=== PATIENT | male | born 1955 | race Caucasian/White ===

== ENCOUNTER 2021-08-17 10:21 | Emergency (ER) | payer OTHER ==
--- NOTE | 2021-08-17 11:20 | RAD REPORT ---
EXAM DESCRIPTION: US - Extremity Nonvascular Limited - 08/17/2021 11:06 am CLINICAL HISTORY: RLE swelling/serous drainage, eval for abscess COMPARISON: No comparisons FINDINGS: Small fluid collection measuring 14 millimeters by 10 millimeters x 4 millimeters at the p atient's amputation stump. The fluid collection is simple in appearance. Fluid is interspersed betwee n the adjacent soft tissues which may reflect a subcutaneous edema. IMPRESSION: Small fluid collection at the patient's stump in the right lower extremity is simple in appearance with abscess considered less likely.
[2021-08-17 11:50] LABS: Absolute Lymphocytes (CBC) 2.2 K/uL (0.7-4.9); Basophils % 1.3 % (0-1.3); Hematocrit 40.8 % (39.6-49.0); Lymphocytes % 25.3 % (15.3-44.8); MPV 7.6 fL (7.6-11.3); RBC Red Blood Cell Count 4.25 M/uL (4.33-5.43)
[2021-08-17 12:21] LABS: BUN Blood Urea Nitrogen 18 mg/dL (7-18); Bicarbonate 27 mmol/L (21-32); Glucose Level 99 mg/dL (74-106); Potassium 3.5 mmol/L (3.5-5.1); Sodium Level 141 mmol/L (136-145)
--- NOTE | 2021-08-17 12:30 | EDPHYS ---
Physician Documentation [facility] Name: Onel López Age: 66 yrs Sex: Male : 1955 Arrival Date: 08/17/2021 Time: 10:25 Bed 2 Private MD: ED Physician Cuauhtemoc Maravilla HPI: 08/17 10:43 This 66 yrs old Male presents to ER via Wheelchair with complaints of rn cellulitis. 10:56 Patient presents to ED for recheck of: cellulitis. rn 10:56 The patient presents with cellulitis of the right leg. Description: erythematous, rn swollen, warm. Onset: The symptoms/episode began/occurred 2 day(s) ago. Possible cause(s): unknown. Associated signs and symptoms: Pertinent positives: drainage, erythema, swelling, Pertinent negatives: fever. Modifying factors: the symptoms are alleviated by nothing, the symptoms are aggravated by pressure. Severity of symptoms: At their worst the symptoms were moderate, in the emergency department the symptoms are unchanged. The patient has experienced similar episodes in the past. The patient has not recently seen a physician. Patient reports is here from out of town, for the last 2 days has noticed blister and swelling to right lower extremity. Status post below the knee amputation 8 years ago, no new prosthesis or injury. Denies trauma. Reports yellow and clear drainage from blister, denies fever.. Historical: - Allergies: 10:38 perfumes; ll1 - PMHx: 10:38 COPD; Hypertensive disorder; ll1 - PSHx: 10:38 R BKA; lung SX x 2; ll1 - Immunization history:: Client reports receiving the Petey \T\ Petey single-dose vaccine. Note plus booster vaccine. - Social history:: Smoking status: Patient reports the use of cigarette tobacco products, smokes one-half pack cigarettes per day. - Family history:: not pertinent. - Hospitalizations: : No recent hospitalization is reported. ROS: 10:56 Constitutional: Negative for fever, chills, and weight loss, Eyes: Negative for injury, rn pain, redness, and discharge, Neck: Negative for injury, pain, and swelling, Cardiovascular: Negative for chest pain, palpitations, and edema, Respiratory: Negative for shortness of breath, cough, wheezing, and pleuritic chest pain, Abdomen/GI: Negative for abdominal pain, nausea, vomiting, diarrhea, and constipation, Back: Negative for injury and pain, MS/Extremity: Positive for swelling and drainage right lower extremity Skin: Positive for mild redness and drainage from right lower extremity Neuro: Negative for headache, weakness, numbness, tingling, and seizure. Exam: 10:56 Constitutional: This is a well developed, well nourished patient who is awake, alert, rn and in no acute distress. Cardiovascular: Regular rate and rhythm. No pulse deficits. Respiratory: Mild tachypnea, speaking full sentences Skin: Warm, mild redness and erythema to right lower extremity distal stump, with blister that is partially unroofed. No purulence. No fluctuance deep to blister MS/ Extremity: Pulses equal, no cyanosis. Neurovascular intact. Full, normal range of motion. Equal circumference. Neuro: Awake and alert, GCS 15 Vital Signs: 10:40 BP 131 / 99; Pulse 73; Resp 18; Temp 97.9; Pulse Ox 98% ; Weight 86.18 kg; Height 5 ft. ll1 7 in. (170.18 cm); Pain 10/10; 12:46 BP 155 / 87; Pulse 69; Resp 18; Pulse Ox 95% on R/A; ll3 10:40 Body Mass Index 29.76 (86.18 kg, 170.18 cm) ll1 MDM: 10:36 Patient medically screened. rn 12:28 Differential diagnosis: abscess, cellulitis. Data reviewed: vital signs, nurses notes, rn medical inpatient services test result(s), radiologic studies, and as a result, I will discharge patient. Counseling: I had a detailed discussion with the patient and/or guardian regarding: the historical points, exam findings, and any diagnostic results supporting the discharge/admit diagnosis, lab results, radiology results, the need for outpatient follow up, to return to the emergency department if symptoms worsen or persist or if there are any questions or concerns that arise at home. Special discussion: I discussed with the patient/guardian in detail that at this point there is no indication for admission to the hospital. It is understood, however, that if the symptoms persist or worsen the patient needs to return immediately for re-evaluation. ED course: Ultrasound shows simple fluid collection that does not appear to be abscess, radiology believes is more subcutaneous edema, which fits more with the serous drainage that patient is experiencing. White blood cell count normal and procalcitonin negative. Had discussion with patient and will try double antibiotics and PCP follow-up. Return precautions given and understood.. 08/17 10:42 Order name: CBC with Diff rn 08/17 10:42 Order name: Basic Metabolic Panel; Complete Time: 12:24 rn 08/17 10:42 Order name: US Extrmty Nonvasular Limited; Complete Time: 11:25 rn 08/17 10:42 Order name: Procalcitonin; Complete Time: 12:24 rn 08/17 10:42 Order name: Blood Culture Adult (2) rn 08/17 10:42 Order name: IV Start; Complete Time: 11:31 rn Administered Medications: 12:46 Drug: Bactrim (trimethoprim-sulfamethoxazole) (160 mg-800 mg (DS) 1 tablet Route: PO; ll3 12:56 Follow up: Response: No adverse reaction ll3 12:46 Drug: KeFLEX (cephalexin) 500 mg Route: PO; ll3 12:56 Follow up: Response: No adverse reaction ll3 Disposition Summary: 08/17/21 12:29 Discharge Ordered Location: Home rn Problem: new rn Symptoms: have improved rn Condition: Stable rn Diagnosis - Cellulitis of right lower limb rn Followup: rn - With: Private Physician - When: As needed - Reason: Recheck today's complaints, Re-evaluation by your physician Discharge Instructions: - Discharge Summary Sheet rn - Cellulitis, Adult rn Forms: - Medication Reconciliation Form rn - Thank You Letter rn - Antibiotic learning support assistant - Prescription Opioid Use rn Prescriptions: - Cephalexin 500 mg Oral Capsule - take 1 capsule by ORAL route every 12 hours for 10 days; 20 capsule; Refills: rn 0, Product Selection Permitted - Bactrim DS 800-160 mg Oral Tablet - take 1 tablet by ORAL route every 12 hours for 10 days; 20 tablet; Refills: 0, rn Product Selection Permitted Signatures: Dispatcher [employer] EDCuauhtemoc Lopez MD MD rn Lewis, Lynsay, RN RN ll1 Yuliet Trejo RN RN ll3 Corrections: (The following items were deleted from the chart) 10:40 10:38 PMHx: Hypertensive disorder; ll1 ll1
--- NOTE | 2021-08-17 12:30 | ER ---
Nurse's Notes [facility] Name: Onel López Age: 66 yrs Sex: Male : 1955 Arrival Date: 08/17/2021 Time: 10:25 Bed 2 Private MD: Diagnosis: Cellulitis of right lower limb Presentation: 08/17 10:40 Chief complaint: Patient states: R stump pain, redness since Sunday getting ll1 progressively worse. No known fever. Coronavirus screen: Vaccine status: Patient reports receiving the 1st dose of the Covid vaccine. Client denies travel out of the [place] in the last 14 days. At this time, the client does not indicate any symptoms associated with coronavirus-19. Ebola Screen: Patient denies travel to an Ebola-affected area in the 21 days before illness onset. Initial Sepsis Screen: Does the patient meet any 2 criteria? No. Patient's initial sepsis screen is negative. Does the patient have a suspected source of infection? Yes: Skin breakdown/wound. Risk Assessment: Do you want to hurt yourself or someone else? Patient reports no desire to harm self or others. Onset of symptoms was August 12, 2021. 10:40 Method Of Arrival: Wheelchair ll1 10:40 Acuity: ANDREW 3 ll1 Triage Assessment: 12:55 General: Behavior is calm, cooperative. Derm: Wound noted right leg. ll3 Historical: - Allergies: 10:38 perfumes; ll1 - PMHx: 10:38 COPD; Hypertensive disorder; ll1 - PSHx: 10:38 R BKA; lung SX x 2; ll1 - Immunization history:: Client reports receiving the Petey \T\ Petey single-dose vaccine. Note plus booster vaccine. - Social history:: Smoking status: Patient reports the use of cigarette tobacco products, smokes one-half pack cigarettes per day. - Family history:: not pertinent. - Hospitalizations: : No recent hospitalization is reported. Screenin:32 Abuse screen: Denies threats or abuse. Nutritional screening: No deficits noted. ll3 Tuberculosis screening: No symptoms or risk factors identified. Fall Risk IV access (20 points). Mental Status- Oriented to own ability (0 pts). Total Saenz Fall Scale indicates No Risk (0-24 pts). Assessment: 11:32 General: Appears in no apparent distress. uncomfortable. Pain: Complains of pain in ll3 right leg Pain currently is 10 out of 10 on a pain scale. Pain began 2-3 days ago. Is continuous. Neuro: Level of Consciousness is awake, alert, obeys commands, Oriented to person, place, time, situation, Speech is normal, Facial symmetry appears normal. Respiratory: Airway is patent Respiratory effort is even, unlabored, Respiratory pattern is regular, symmetrical. Derm: Skin has blisters on Blisters to right stump Skin is pink, warm \T\ dry. Wound noted right leg Reports pain that is 10 out of 10 on a pain scale. since Sunday. Musculoskeletal: Amputation of right leg, below knee. 12:46 Reassessment: Patient appears in no apparent distress at this time. No changes from ll3 previously documented assessment. Patient and/or family updated on plan of care and expected duration. Pain level reassessed. Patient is alert, oriented x 3, equal unlabored respirations, skin warm/dry/pink. Vital Signs: 10:40 BP 131 / 99; Pulse 73; Resp 18; Temp 97.9; Pulse Ox 98% ; Weight 86.18 kg; Height 5 ft. ll1 7 in. (170.18 cm); Pain 10/10; 12:46 BP 155 / 87; Pulse 69; Resp 18; Pulse Ox 95% on R/A; ll3 10:40 Body Mass Index 29.76 (86.18 kg, 170.18 cm) ll1 ED Course: 10:25 Patient arrived in ED. am2 10:36 Cuauhtemoc Maravilla MD is Attending Physician. rn 10:38 Arm band placed on Patient placed in an exam room, on a stretcher. ll1 10:42 Triage completed. ll1 10:56 Yuliet Trejo, GIOVANNY is Primary Nurse. ll3 11:06 US Extrmty Nonvasular Limited In Process Unspecified. EDMS 11:31 Missed attempt(s): 20 gauge in right antecubital area. 22 gauge in right forearm. ll3 11:31 Inserted saline lock: 22 gauge in left forearm, using aseptic technique. ll3 11:31 Initial lab(s) drawn, by me, sent to lab. jl7 11:32 Patient has correct armband on for positive identification. Bed in low position. Call 3 light in reach. Side rails up X 1. 12:54 No provider procedures requiring assistance completed. IV discontinued, intact, ll3 bleeding controlled, No redness/swelling at site. Pressure dressing applied. Administered Medications: 12:46 Drug: Bactrim (trimethoprim-sulfamethoxazole) (160 mg-800 mg (DS) 1 tablet Route: PO; ll3 12:56 Follow up: Response: No adverse reaction ll3 12:46 Drug: KeFLEX (cephalexin) 500 mg Route: PO; ll3 12:56 Follow up: Response: No adverse reaction ll3 Outcome: 12:29 Discharge ordered by . rn 12:55 Discharged to home via wheelchair. ll3 12:55 Condition: stable 12:55 Discharge instructions given to patient, Instructed on discharge instructions, follow up and referral plans. medication usage, Demonstrated understanding of instructions, follow-up care, medications, Prescriptions given X 2. 12:56 Patient left the ED. ll3 Signatures: Dispatcher [employer] EDMS Cuauhtemoc Maravilla MD MD rn Leal, Jahala, RN RN jl7 Tami Chong Lynsay, RN RN ll1 Yuliet Trejo, GIOVANNY RN ll3 Corrections: (The following items were deleted from the chart) 10:40 10:38 PMHx: Hypertensive disorder; ll1 ll1
[2021-08-17] MEDS ORDERED: CEPHALEXIN 250 MG CAP ONE (12:36)
[2021-08-17] MEDS ORDERED: SMZ./TMP. 800/160 MG TABLET ONE (12:37)
[2021-08-17 12:56] LABS: Blood Morphology Comment NOT SEEN (NOT SEEN); Platelet Estimate ADEQ
[2021-08-17 13:04] VITALS: TEMP 97.9
[2021-08-17 13:05] VITALS: BP 155/87; O2SAT 95
== END 2021-08-17 12:56 | disposition home or self-care (01) ==
LOC: ER 10:21
DX: L03.115 Cellulitis of right lower limb (principal); J44.9 Chronic obstructive pulmonary disease, unspecified; I10 Essential (primary) hypertension
CPT/HCPCS: 36415; 76882; 80048; 84145; 85025; 87040; 99284

== ENCOUNTER 2021-08-19 16:04 | Inpatient (IN) | payer OTHER ==
[2021-08-19] MEDS ORDERED: IPRATROPIUM BROM 0.5MG/2.5ML ONE (18:19)
[2021-08-19] MEDS ORDERED: ALBUTEROL 2.5 MG/3 ML NEB SOL ONE (18:19)
[2021-08-19] MEDS ORDERED: MORPHINE 4 MG/ML SYR ONE (18:19)
[2021-08-19 18:45] LABS: Absolute Lymphocytes (CBC) 1.3 K/uL (0.7-4.9); Basophils % 0.5 % (0-1.3); Hematocrit 40.7 % (39.6-49.0); Lymphocytes % 12.8 % (15.3-44.8); MPV 7.6 fL (7.6-11.3); RBC Red Blood Cell Count 4.26 M/uL (4.33-5.43)
[2021-08-19 18:49] LABS: Protime INR 0.88
[2021-08-19 19:08] LABS: BUN Blood Urea Nitrogen 16 mg/dL (7-18); Bicarbonate 28 mmol/L (21-32); Glucose Level 115 mg/dL (74-106); Potassium 4.5 mmol/L (3.5-5.1); Sodium Level 137 mmol/L (136-145)
[2021-08-19 19:09] LABS: ALT/SGPT 35 U/L (12-78); AST/SGOT 24 U/L (15-37); Albumin 3.4 g/dL (3.4-5.0); Alkaline Phosphatase 71 U/L (45-117); Bilirubin Direct < 0.1 mg/dL (0-0.2); Bilirubin Total 0.2 mg/dL (0.2-1.0); Protein, Total 6.9 g/dL (6.4-8.2)
--- NOTE | 2021-08-19 19:19 | ER ---
Nurse's Notes [facility] Name: Onel López Age: 66 yrs Sex: Male : 1955 Arrival Date: 08/19/2021 Time: 16:07 Bed 17 Private MD: Diagnosis: Cellulitis of right lower limb Presentation: 08/19 17:08 Chief complaint: Patient states: I came to have my leg looked at again. I was put on iw antibiotics for the infection and it is getting worse. Reports increased redness, drainage, pain. Coronavirus screen: Vaccine status: Patient reports receiving the 2nd dose of the covid vaccine. Ebola Screen: Patient negative for fever greater than or equal to 101.5 degrees Fahrenheit, and additional compatible Ebola Virus Disease symptoms Patient denies exposure to infectious person. Patient denies travel to an Ebola-affected area in the 21 days before illness onset. No symptoms or risks identified at this time. Initial Sepsis Screen: Does the patient meet any 2 criteria? No. Patient's initial sepsis screen is negative. Does the patient have a suspected source of infection? Yes:. Risk Assessment: Do you want to hurt yourself or someone else? Patient reports no desire to harm self or others. Onset of symptoms was August 12, 2021. 17:08 Acuity: ANDREW 3 iw 17:08 Method Of Arrival: Ambulatory iw Triage Assessment: 17:11 General: Appears in no apparent distress. comfortable, Behavior is calm, cooperative. iw Pain: Complains of pain in right leg Pain currently is 9 out of 10 on a pain scale. 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 - Social history:: Smoking status: Patient reports the use of cigarette tobacco products, smokes one pack cigarettes per day. Screenin:38 Abuse screen: Denies threats or abuse. Denies injuries from another. Nutritional ld1 screening: No deficits noted. Tuberculosis screening: No symptoms or risk factors identified. Fall Risk None identified. Assessment: 18:15 General: Appears in no apparent distress. comfortable, Behavior is calm, cooperative, ld1 appropriate for age. 18:15 Pain: Complains of pain in right knee Pain does not radiate. Pain currently is 8 out of ld1 10 on a pain scale. Quality of pain is described as sharp, throbbing, Pain began gradually, Is continuous. Neuro: Level of Consciousness is awake, alert, obeys commands, Oriented to person, place, time, situation, Appropriate for age. Cardiovascular: Capillary refill < 3 seconds Patient's skin is warm and dry. Respiratory: Airway is patent Respiratory effort is even, unlabored, Respiratory pattern is regular, symmetrical. GI: Abdomen is flat, non-distended. : No signs and/or symptoms were reported regarding the genitourinary system. EENT: No signs and/or symptoms were reported regarding the EENT system. Derm: Wound noted right knee Reports pain. Musculoskeletal: No signs and/or symptoms reported regarding the musculoskeletal system. Vital Signs: 17:08 BP 130 / 84; Pulse 84; Resp 20; Temp 97.8; Pulse Ox 97% ; Weight 86.18 kg; Height 5 ft. iw 7 in. (170.18 cm); Pain 9/10; 18:15 BP 134 / 81; Pulse 92; Resp 17; Pulse Ox 94% on R/A; ld1 20:58 BP 142 / 88; Pulse 85; Resp 21; Pulse Ox 96% on R/A; ld1 21:35 BP 143 / 81; Pulse 81; Resp 18; Pulse Ox 97% on 2 lpm NC; ld1 17:08 Body Mass Index 29.76 (86.18 kg, 170.18 cm) iw ED Course: 16:07 Patient arrived in ED. ds1 17:10 Triage completed. iw 17:10 Arm band placed on right wrist. iw 17:48 Britton Suarez PA is PHCP. cp 17:48 Harvey Calvillo MD is Attending Physician. cp 17:59 Carolina Truong RN is Primary Nurse. ld1 18:22 First set of blood cultures drawn by me. Inserted saline lock: 20 gauge in right dh3 antecubital area, using aseptic technique. Blood collected. 18:26 Initial lab(s) drawn, by me, sent to lab. Second set of blood cultures drawn by me. 3 18:31 COVID-19 (Coronavirus) Document "Date of Onset" if Symptomatic Sent. ld1 18:31 Wound Culture Sent. ld1 19:01 XRAY Chest (1 view) In Process Unspecified. EDMS 19:01 XRAY Knee RIGHT 3 view In Process Unspecified. EDMS 19:18 Gelacio Ferguson is Hospitalizing Provider. cp 22:38 No provider procedures requiring assistance completed. Patient admitted, IV remains in ld1 place. 22:39 Patient has correct armband on for positive identification. Bed in low position. Call ld1 light in reach. Side rails up X2. Pulse ox on. NIBP on. Door closed. Noise minimized. Warm blanket given. Administered Medications: 18:26 Drug: morphine 4 mg Route: IVP; Site: right antecubital; ld1 18:31 Follow up: Response: No adverse reaction ld1 18:31 Drug: Albuterol - atroVENT (ipratropium) (3:1) (2.5 mg - 0.5 mg) 3 ml Route: Nebulizer; ld1 19:30 Drug: Zosyn (piperacillin-tazobactam) 3.375 grams Route: IVPB; Infused Over: 60 mins; ld1 Site: right antecubital; 20:11 Follow up: Response: No adverse reaction; IV Status: Completed infusion; IV Intake: ld1 100ml 20:10 Drug: Dilaudid (HYDROmorphone) 0.5 mg Route: IVP; Site: right antecubital; ld1 20:11 Follow up: Response: No adverse reaction ld1 Intake: 20:11 IV: 100ml; Total: 100ml. ld1 Outcome: 19:19 Decision to Hospitalize by Provider. cp 22:38 Admitted to Med/surg accompanied by nurse, via wheelchair, room 229, with oxygen, with ld1 chart, Report called to GIOVANNY Gaston 22:38 Condition: stable 22:38 Instructed on the need for admit. 22:39 Patient left the ED. ld1 Signatures: Dispatcher [employer] [facility] Jennie Leavitt ds1 Priscilla Cantu, RN RN iw Britton Suarez PA PA Adelaide Sahu 3 Carolina Truong RN RN ld1
--- NOTE | 2021-08-19 19:19 | EDPHYS ---
Physician Documentation [facility] Name: Onel López Age: 66 yrs Sex: Male : 1955 Arrival Date: 08/19/2021 Time: 16:07 Bed 17 Private MD: ED Physician Harvey Calvillo HPI: 08/19 18:05 This 66 yrs old Male presents to ER via Ambulatory with complaints of Wound Recheck. cp 18:05 Patient presents to ED for recheck of: abscess, cellulitis. cp 18:05 The affected area is on the amputation site of right lower extremity. Previous cp treatment: The patient was initially treated 2 day(s) ago, the care was rendered at [facility], Treatment type: The patient's original treatment included oral antibiotics, Bactrim, Keflex. Progress: The patient reports worsening redness and drainage. 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 - Social history:: Smoking status: Patient reports the use of cigarette tobacco products, smokes one pack cigarettes per day. ROS: 18:10 Constitutional: Negative for body aches, chills, fever, poor PO intake. cp 18:10 Eyes: Negative for injury, pain, redness, and discharge. cp 18:10 ENT: Negative for ear pain, sore throat, difficulty swallowing, difficulty handling secretions. 18:10 Cardiovascular: Negative for chest pain, palpitations. 18:10 Respiratory: Negative for cough, shortness of breath, wheezing. 18:10 Abdomen/GI: Negative for abdominal pain, nausea, vomiting, and diarrhea. 18:10 Back: Negative for pain at rest, pain with movement. 18:10 Skin: Positive for cellulitis, of the amputation site of right lower extremity. 18:10 Neuro: Negative for altered mental status, headache, weakness. 18:10 All other systems are negative. Exam: 18:15 Constitutional: The patient appears in no acute distress, alert, awake, cp non-diaphoretic, non-toxic, well developed, well nourished, uncomfortable. 18:15 Head/Face: Normocephalic, atraumatic. cp 18:15 Eyes: Periorbital structures: appear normal, Conjunctiva: normal, no exudate, no injection, Sclera: no appreciated abnormality, Lids and lashes: appear normal, bilaterally. 18:15 ENT: External ear(s): are unremarkable, Nose: is normal, Mouth: Lips: moist, Oral mucosa: moist, Posterior pharynx: Airway: no evidence of obstruction, patent. 18:15 Chest/axilla: Inspection: normal. 18:15 Cardiovascular: Rate: normal, Rhythm: regular, Edema: is not appreciated. 18:15 Respiratory: the patient does not display signs of respiratory distress, Respirations: normal, no use of accessory muscles, no retractions, labored breathing, is not present, Breath sounds: are clear throughout, no decreased breath sounds, no stridor, no wheezing. 18:15 Abdomen/GI: Exam negative for discomfort, distension, guarding, Inspection: abdomen appears normal. 18:15 Musculoskeletal/extremity: Extremities: grossly normal except: noted in the right leg: below the knee amputation. 18:15 Skin: cellulitis, that is mild, well demarcated, on the amputation site of right lower extremity, serosanguinous drainage noted, marked tenderness to palpation. 18:30 ECG was reviewed by the Attending Physician. Vital Signs: 17:08 BP 130 / 84; Pulse 84; Resp 20; Temp 97.8; Pulse Ox 97% ; Weight 86.18 kg; Height 5 ft. iw 7 in. (170.18 cm); Pain 9/10; 18:15 BP 134 / 81; Pulse 92; Resp 17; Pulse Ox 94% on R/A; ld1 20:58 BP 142 / 88; Pulse 85; Resp 21; Pulse Ox 96% on R/A; ld1 21:35 BP 143 / 81; Pulse 81; Resp 18; Pulse Ox 97% on 2 lpm NC; ld1 17:08 Body Mass Index 29.76 (86.18 kg, 170.18 cm) iw MDM: 17:53 Patient medically screened. 19:00 Differential diagnosis: cellulitis, abscess, osteomyelitis, bacteremia, sepsis. 19:20 Physician consultation: Jeferson DURON was contacted at 19:15, regarding admission, to the telemetry unit. patient's condition, and will see patient in ED, shortly. 19:30 Data reviewed: vital signs, nurses notes, lab test result(s), EKG, radiologic studies, cp plain films. 19:30 Test interpretation: by ED physician or midlevel provider: ECG, plain radiologic cp studies. 08/19 18:06 Order name: CBC with Diff 08/19 18:06 Order name: BMP cp 08/19 18:06 Order name: LFT's 08/19 18:06 Order name: COVID-19 (Coronavirus) Document "Date of Onset" if Symptomatic 08/19 18:06 Order name: Procalcitonin 08/19 18:06 Order name: Lactate; Complete Time: 19:14 08/19 18:06 Order name: Blood Culture Adult (2) 08/19 18:06 Order name: Wound Culture 08/19 18:06 Order name: PT-INR; Complete Time: 19:14 08/19 18:06 Order name: Ptt, Activated; Complete Time: 19:14 08/19 18:06 Order name: CBC with Automated Diff; Complete Time: 19:14 EDSD 08/19 19:14 Interpretation: Normal except: RBC 4.26; DANIELLE% 81.6; LYM% 12.8. 08/19 18:06 Order name: Basic Metabolic Panel; Complete Time: 19:14 EDMS 08/19 18:06 Order name: Liver (Hepatic) Function; Complete Time: 19:14 EDMS 08/19 18:06 Order name: IV; Complete Time: 18:31 08/19 18:06 Order name: XRAY Chest (1 view); Complete Time: 19:28 08/19 19:28 Interpretation: Report review. 08/19 18:06 Order name: EKG; Complete Time: 18:07 08/19 18:06 Order name: EKG - Nurse/Tech; Complete Time: 18:31 08/19 18:06 Order name: XRAY Knee RIGHT 3 view; Complete Time: 19:28 08/19 19:28 Interpretation: Report reviewed. 08/19 18:07 Order name: Procalcitonin EDMS 08/19 18:52 Order name: SARS-COV-2 RT PCR EDSD 08/19 19:44 Order name: CONS Physician Consult EDMS EC:30 Rate is 88 beats/min. Rhythm is regular. VA interval is normal. QRS interval is normal. cp QT interval is normal. T waves are Inverted in leads aVL, aVR. Interpreted by me. Reviewed by me. Administered Medications: 18:26 Drug: morphine 4 mg Route: IVP; Site: right antecubital; ld1 18:31 Follow up: Response: No adverse reaction ld1 18:31 Drug: Albuterol - atroVENT (ipratropium) (3:1) (2.5 mg - 0.5 mg) 3 ml Route: Nebulizer; ld1 19:30 Drug: Zosyn (piperacillin-tazobactam) 3.375 grams Route: IVPB; Infused Over: 60 mins; ld1 Site: right antecubital; 20:11 Follow up: Response: No adverse reaction; IV Status: Completed infusion; IV Intake: ld1 100ml 20:10 Drug: Dilaudid (HYDROmorphone) 0.5 mg Route: IVP; Site: right antecubital; ld1 20:11 Follow up: Response: No adverse reaction ld1 Disposition Summary: 08/19/21 19:19 Hospitalization Ordered Hospitalization Status: Inpatient Admission cp Provider: Gelacio Ferguson cp Location: Telemetry/MedSurg (Inpatient) cp Condition: Stable cp Problem: new cp Symptoms: have worsened cp Bed/Room Type: Standard cp Room Assignment: 229(08/19/21 19:59) mw Diagnosis - Cellulitis of right lower limb cp Forms: - Medication Reconciliation Form cp - SBAR form cp Addendum: 08/24/2021 07:12 Co-signature as Attending Physician, Harvey Calvillo MD I agree with the assessment and k dr plan of care. Signatures: Dispatcher [employer] EDMS Simin Almeida RN RN mw Rittger, Kevin, MD MD kdr Williams, Irene, RN RN Britton Alvarez PA PA cp Johnson, Evan, PA PA ej Dibbern, Lauren, RN RN ld1 Corrections: (The following items were deleted from the chart) 08/19 18:52 18:07 CORONAVIRUS ordered. EDMS EDMS 19:59 19:19 cp mw
[2021-08-19] MEDS ORDERED: PIPERACIL/TAZO 3.375 GM VIAL IV ONE (19:21)
[2021-08-19] MEDS ORDERED: NA CHLORIDE 0.9% 0 ML ONE (19:21)
--- NOTE | 2021-08-19 19:21 | RAD REPORT ---
EXAM DESCRIPTION: RAD - Knee Right 3 View - 08/19/2021 7:01 pm CLINICAL HISTORY: PAIN COMPARISON: No comparisons FINDINGS: Status post ifocm-oiy-ojos amputation. No fracture is identified. No findings to suggest o steomyelitis. No soft tissue gas. IMPRESSION: Status post jghkk-tyk-jumx amputation. No fracture or radiographic evidence of osteomyel itis identified.
--- NOTE | 2021-08-19 19:22 | RAD REPORT ---
EXAM DESCRIPTION: RAD - Chest Single View - 08/19/2021 7:01 pm CLINICAL HISTORY: SOB COMPARISON: No comparisons FINDINGS: Lines: None. Lungs: No evidence of edema or pneumonia. Chain sutures in the right upper lobe. Pleural: No significant pleural effusions or pneumothorax. Cardiac: The heart size is within normal limits. Bones: No acute fractures. Other: IMPRESSION: No acute cardiopulmonary disease.
[2021-08-19] MEDS ORDERED: NA CHLORIDE 0.9% 100 ML ONE (19:23)
[2021-08-19] MEDS ORDERED: HYDROMORPHONE HCL 0.5 MG/0.5 ML INJ ONE (20:08)
--- NOTE | 2021-08-19 20:31 | P.HP ---
Certification for Inpatient Patient admitted to: Inpatient With expected LOS: <2 Midnights Patient will require the following post-hospital care: None Practitioner: I am a practitioner with admitting privileges, knowledge of patient current condition, hospital course, and medical plan of care. Services: Services provided to patient in accordance with Admission requirements found in Title 42 Section 412.3 of the Code of Federal Regulations Patient History Date of Service: 08/19/21 Reason for admission: wound drainage History of Present Illness: Mr. López is a 66 yo M with COPD on 2L Home O2, right below the knee amputation who presents with a week of blisters and increased serosanguinous drainage at his amputation site. He reports increased warmth, pain, and swelling. The blister leaves his stocking completely drenched with fluid. He has had blisters at the site in the past that have drained and resolved on their own. Denies fever, nausea, vomiting. XRAY IMPRESSION: Status post sjwpv-wlr-hyzi amputation. No fracture or radiographic evidence of osteomyelitis identified. ULTRASOUND IMPRESSION: Small fluid collection at the patient's stump in the right lower extremity is simple in appearance with abscess considered less likely. - Past Medical/Surgical History Diabetic: No -: COPD -: R BKA -: left wrist surgery -: lung surgery - Family History Family History: Reviewed- Non-Contributory - Social History Smoking Status: Current some day smoker Alcohol use: Yes CD- Drugs: No Caffeine use: Yes Place of Residence: Home Review of Systems 10-point ROS is otherwise unremarkable General: Unremarkable Eyes: Unremarkable ENT: Unremarkable Respiratory: Shortness of Breath, Wheezing Cardiovascular: Unremarkable Gastrointestinal: Unremarkable Genitourinary: Unremarkable Musculoskeletal: Leg Pain Integumentary: As per HPI Neurological: Unremarkable Lymphatics: Unremarkable Physical Examination - Physical Exam General: Alert, In no apparent distress HEENT: Atraumatic, PERRLA, Mucous membr. moist/pink, EOMI, Sclerae nonicteric Neck: Supple, 2+ carotid pulse no bruit, No LAD, Without JVD or thyroid abnormality Respiratory: Diminished, Expiratory wheezes Cardiovascular: Regular rate/rhythm, Normal S1 S2 Gastrointestinal: Normal bowel sounds, No tenderness Musculoskeletal: Swelling, Erythema, Tenderness Integumentary: Skin breakdown, Tenderness/swelling, Erythema, Other (vesicle at site, swelling, erythema ) Neurological: Normal speech, Normal strength at 5/5 x4 extr, Normal tone, Normal affect Lymphatics: No axilla or inguinal lymphadenopathy - Studies Laboratory Data (last 24 hrs) 08/19/21 18:26: PT 10.1, INR 0.88, APTT 36.4 08/19/21 18:26: Sodium 137, Potassium 4.5, BUN 16, Creatinine 1.17, Glucose 115 H, Total Bilirubin 0.2, AST 24, ALT 35, Alkaline Phosphatase 71 08/19/21 18:26: WBC 9.80, Hgb 14.2, Hct 40.7, Plt Count 338 Assessment and Plan - Problems (Diagnosis) (1) COPD (chronic obstructive pulmonary disease) Current Visit: Yes Status: Chronic Qualifiers: COPD type: unspecified COPD Qualified Code(s): J44.9 - Chronic obstructive pulmonary disease, unspecified (2) Hx of right BKA Current Visit: Yes Status: Chronic (3) Right BKA infection Current Visit: Yes Status: Acute - Plan procalcitonin pending surgery consulted, wound care consulted continue IV antibiotics blood cultures pending continue pain management continue O2, breathing treatments reconcile and continue home medications DVT ppx Discharge Plan: Home Plan to discharge in: 24 Hours - Advance Directives Does patient have a Living Will: No Does patient have a Durable POA for Healthcare: No - Code Status/Comfort Care Code Status Assessed: Yes (full code ) Critical Care: No Time Spent Managing Pts Care (In Minutes): 70
[2021-08-19 23:43] VITALS: BMI 30.5
[2021-08-19] MEDS ORDERED: ACETAMINOPHEN 500 MG TAB PO PRN (23:51)
[2021-08-19] MEDS ORDERED: Oxycodone HCl/Acetaminophen 1 TAB TAB PO PRN (23:51)
[2021-08-19] MEDS ORDERED: HYDRALAZINE HCL 20 MG/ML VIAL IV PRN (23:51)
[2021-08-19] MEDS ORDERED: Oxycodone Myristate [Xtampza Er] 13.5 MG Cap.Spr.12 PO PRN (23:51)
[2021-08-19] MEDS ORDERED: ZOLPIDEM TARTRATE 10 MG TABLET PO PRN (23:51)
[2021-08-19] MEDS ORDERED: ALBUTEROL INHALER 60 PUFF/8 GM IH PRN (23:51)
[2021-08-19] MEDS ORDERED: ONDANSETRON 4 MG/2 ML VIAL IV PRN (23:51)
[2021-08-20] MEDS: AMITRIPTYLINE 50 MG TAB PO SCH ×2 (00:35→21:36)
[2021-08-20] MEDS: ROPINIROLE HCL 1 MG TAB PO SCH ×2 (00:35→21:36)
[2021-08-20] MEDS: MORPHINE 4 MG/ML SYR IV PRN ×4 (00:40→21:34)
[2021-08-20] MEDS: VANCOMYCIN 1.5 GM in NA CHLORIDE 0.9% 500 ML IVPB SCH ×2 (01:30→19:30)
[2021-08-20] MEDS: ALBUTEROL 2.5 MG/3 ML NEB SOL NEB PRN ×4 (03:43→23:00)
[2021-08-20] MEDS: IPRATROPIUM BROM 0.5MG/2.5ML NEB PRN ×2 (03:43→11:25)
[2021-08-20 06:02] LABS: Absolute Lymphocytes (CBC) 1.8 K/uL (0.7-4.9); Basophils % 0.4 % (0-1.3); Hematocrit 38.3 % (39.6-49.0); Lymphocytes % 21.3 % (15.3-44.8); MPV 7.7 fL (7.6-11.3); RBC Red Blood Cell Count 3.97 M/uL (4.33-5.43)
[2021-08-20 06:20] LABS: Bilirubin Total 0.3 mg/dL (0.2-1.0); Magnesium 2.5 mg/dL (1.8-2.4); Phosphorus 3.6 mg/dL (2.5-4.9); Potassium 3.9 mmol/L (3.5-5.1); Protein, Total 6.2 g/dL (6.4-8.2)
[2021-08-20] MEDS ORDERED: VANCOMYCIN 1 GM in NA CHLORIDE 0.9% 250 ML IVPB SCH (08:00)
[2021-08-20] MEDS ORDERED: LUBIPROSTONE 24 MCG CAP PO SCH (09:00)
[2021-08-20] MEDS: MIST INHAL PO SCH (09:00)
[2021-08-20] MEDS: TIOTROPIUM BROMIDE 4 GM PO SCH (09:00)
[2021-08-20] MEDS ORDERED: predniSONE 10 MG TAB PO SCH (09:00)
[2021-08-20] MEDS ORDERED: POTASSIUM CL SA 10 MEQ TAB PO ONE (09:00)
[2021-08-20] MEDS ORDERED: DULERA 200/5 (MOMETASONE/FORMOTEROL) INHALER IH SCH ×2 (09:00→21:00)
[2021-08-20] MEDS ORDERED: NA CHLORIDE 0.9% 250 ML ONE (10:24)
[2021-08-20] MEDS: PIPER TAZO 3.375 GM in NA CHLORIDE 0.9% 100 ML IV SCH ×2 (10:35→16:50)
[2021-08-20] MEDS: MELOXICAM 7.5 MG TAB PO SCH (10:36)
[2021-08-20] MEDS: hydroCHLOROthiazide 25 MG TAB PO SCH (10:36)
[2021-08-20] MEDS: PANTOPRAZOLE 40MG TABLET PO SCH (10:36)
[2021-08-20] MEDS: PREGABALIN 50 MG CAP PO SCH ×3 (10:36→21:36)
[2021-08-20] MEDS: NYSTATIN 500,000 UNIT/5 ML UDC PO SCH ×5 (10:37→21:35)
[2021-08-20] MEDS: BACLOFEN 10 MG TAB PO SCH ×2 (10:37→21:36)
[2021-08-20] MEDS: ENOXAPARIN 40 MG/0.4 ML SQ SCH (10:37)
[2021-08-20] MEDS: DULERA 200/5 (MOMETASONE/FORMOTEROL) INHALER IH SCH ×2 (12:27→21:00)
--- NOTE | 2021-08-20 12:42 | P.PN ---
Subjective Date of Service: 08/20/21 Chief Complaint: wound drainage Patient complaining of shortness of breath and wheezing. Also complaining of pain in the right below-knee amputation stump. Physical Examination - Vital Signs Temperature: 97.5 F Blood Pressure: 128/103 Pulse: 85 Respirations: 22 Pulse Ox (%): 96 - Physical Exam General: Alert, In no apparent distress, Oriented x3 HEENT: Atraumatic, Mucous membr. moist/pink Neck: Supple, JVD not distended Respiratory: Diminished (Bilateral), Expiratory wheezes Cardiovascular: No edema, Regular rate/rhythm, Normal S1 S2 Capillary refill: <2 Seconds Gastrointestinal: Normal bowel sounds, Soft and benign, Non-distended, No tenderness Musculoskeletal: Other (Right below-knee amputation) Integumentary: Other (Multiple wounds on right BKA stump.) Neurological: Normal speech, Normal strength at 5/5 x4 extr, Cranial nerves 3-12 intact - Studies Laboratory Data (last 24 hrs) 08/19/21 18:26: PT 10.1, INR 0.88, APTT 36.4 08/19/21 18:26: Sodium 137, Potassium 4.5, BUN 16, Creatinine 1.17, Glucose 115 H, Total Bilirubin 0.2, AST 24, ALT 35, Alkaline Phosphatase 71 08/19/21 18:26: WBC 9.80, Hgb 14.2, Hct 40.7, Plt Count 338 Microbiology Data (last 24 hrs): 08/19/21 18:29 Wound - Right Lower Leg Gram Stain - Final Assessment And Plan - Current Problems (Diagnosis) (1) COPD exacerbation Current Visit: Yes Status: Acute (2) Right BKA infection Current Visit: Yes Status: Acute - Plan Continue IV vancomycin. Change Zosyn to Levaquin given risk of renal impairment with Vanco and Zosyn combination. Schedule bronchodilators, continue home Advair. Start steroid for COPD exacerbation. Oxygen therapy as needed. General surgery consult is pending.
[2021-08-20] MEDS: IPRATROPIUM BROM 0.5MG/2.5ML NEB SCH ×3 (14:10→23:00)
[2021-08-20] MEDS ORDERED: VANCOMYCIN 1 GM/VIAL ONE (20:31)
[2021-08-20] MEDS: AMITIZA 24 MCG PO SCH (21:00)
[2021-08-20] MEDS ORDERED: DOCUSATE NA 100 MG CAP PO SCH (21:00)
[2021-08-20] MEDS ORDERED: NA CHLORIDE 0.9% 0 ML ONE (21:32)
[2021-08-20] MEDS: predniSONE 20 MG TAB PO SCH (21:36)
[2021-08-21] MEDS: PIPER TAZO 3.375 GM in NA CHLORIDE 0.9% 100 ML IV SCH ×2 (01:26→08:00)
[2021-08-21] MEDS: IPRATROPIUM BROM 0.5MG/2.5ML NEB SCH ×2 (02:00→08:27)
[2021-08-21] MEDS: ALBUTEROL 2.5 MG/3 ML NEB SOL NEB PRN ×3 (03:25→12:15)
[2021-08-21 06:37] LABS: Potassium 4.4 mmol/L (3.5-5.1)
[2021-08-21] MEDS: NYSTATIN 500,000 UNIT/5 ML UDC PO SCH (07:55)
[2021-08-21] MEDS: PREGABALIN 50 MG CAP PO SCH (07:55)
[2021-08-21] MEDS: ENOXAPARIN 40 MG/0.4 ML SQ SCH (07:55)
[2021-08-21] MEDS: MELOXICAM 7.5 MG TAB PO SCH (07:56)
[2021-08-21] MEDS: DULERA 200/5 (MOMETASONE/FORMOTEROL) INHALER IH SCH (07:56)
[2021-08-21] MEDS: BACLOFEN 10 MG TAB PO SCH (07:56)
[2021-08-21] MEDS: PANTOPRAZOLE 40MG TABLET PO SCH (07:56)
[2021-08-21] MEDS: hydroCHLOROthiazide 25 MG TAB PO SCH (07:56)
[2021-08-21] MEDS: predniSONE 20 MG TAB PO SCH (07:56)
[2021-08-21] MEDS: AMITIZA 24 MCG PO SCH (07:57)
[2021-08-21] MEDS: MIST INHAL PO SCH (07:58)
[2021-08-21] MEDS: TIOTROPIUM BROMIDE 4 GM PO SCH (07:58)
[2021-08-21 10:00] VITALS: BP 145/85; TEMP 97
--- NOTE | 2021-08-21 10:50 | P.DS ---
Admission Date: 08/19/21 Discharge Date: 08/21/21 Disposition: ROUTINE DISCHARGE Discharge Condition: FAIR Reason for Admission: wound drainage - Problems (1) COPD exacerbation Current Visit: Yes Status: Acute (2) Right BKA infection Current Visit: Yes Status: Acute Brief History of Present Illness: Mr. López is a 66 yo M with COPD on 2L Home O2, right below the knee amputation who presents with a week of blisters and increased serosanguinous drainage at his amputation site. He reports increased warmth, pain, and swelling. He has had blisters at the site in the past that have drained and resolved on their own. Denied fever, nausea, vomiting. XRAY IMPRESSION: Status post [id number]-[id number] amputation. No fracture or radiographic evidence of osteomyelitis identified. Had an ultrasound done as an outpatient which showed fluid collection likely related to the blisters. Patient hospitalized for further management. Hospital Course: Patient admitted to the medical floor and started on antibiotics. It appears patient developed blisters on the right BKA amputation stump which burst leaving a wound. Wound looks clean and dry, no erythema or fluctuance to suggest abscess. Patient seen and evaluated by general surgery and no intervention recommended. He developed COPD exacerbation and was treated with bronchodilators and steroid. Patient is clinically stable is discharged with Levaquin for possible cellulitis of the right amputation stump. His other medications are resumed on discharge. Vital Signs/Physical Exam: Temp Pulse Resp BP Pulse Ox 97.0 F 84 18 145/85 H 98 08/21/21 08:00 08/21/21 08:00 08/21/21 08:00 08/21/21 08:00 08/21/21 08:00 Laboratory Data at Discharge: WBC 8.60 K/uL (4.3-10.9) 08/20/21 05:23 Hgb 12.9 g/dL (13.6-17.9) L 08/20/21 05:23 Hct 38.3 % (39.6-49.0) L 08/20/21 05:23 Plt Count 317 K/uL (152-406) 08/20/21 05:23 PT 10.1 SECONDS (9.5-12.5) 08/19/21 18:26 INR 0.88 08/19/21 18:26 APTT 36.4 SECONDS (24.3-36.9) 08/19/21 18:26 Sodium 138 mmol/L (136-145) 08/21/21 05:38 Potassium 4.4 mmol/L (3.5-5.1) 08/21/21 05:38 BUN 14 mg/dL (7-18) 08/21/21 05:38 Creatinine 0.99 mg/dL (0.55-1.3) 08/21/21 05:38 Glucose 124 mg/dL (74-106) H 08/21/21 05:38 Phosphorus 3.6 mg/dL (2.5-4.9) 08/20/21 05:23 Magnesium 2.5 mg/dL (1.8-2.4) H 08/20/21 05:23 Total Bilirubin 0.3 mg/dL (0.2-1.0) 08/20/21 05:23 AST 22 U/L (15-37) 08/20/21 05:23 ALT 30 U/L (12-78) 08/20/21 05:23 Alkaline Phosphatase 56 U/L (45-117) 08/20/21 05:23 Home Medications: Albuterol Neb [Proventil 0.083% Neb Soln] 1 vial NEB Q4HR PRN 08/19/21 Albuterol Sulfate [Ventolin Hfa] 2 puff IH QID PRN 08/19/21 Amitriptyline [Elavil*] 50 mg PO BEDTIME 08/19/21 Baclofen 10 mg PO BID 08/19/21 Docusate Sodium 200 mg PO BEDTIME 08/19/21 Fluticasone Propion/Salmeterol [Fluticasone-Salmeterol 500-50] 1 puff PO Q12HR 08/19/21 Lubiprostone 24 mcg PO BID 08/19/21 Meloxicam 7.5 mg PO BREAKFAST 08/19/21 Nystatin 5 ml PO QID 08/19/21 Omeprazole 20 mg PO DAILY 08/19/21 Oxycodone HCl/Acetaminophen [Endocet 5-325 Tablet] 1 tab PO Q8HR 08/19/21 Oxycodone Myristate [Xtampza ER] 13.5 mg PO Q12HR 08/19/21 Pregabalin [Lyrica] 200 mg PO TID 08/19/21 Ropinirole HCl 2 mg PO BEDTIME 08/19/21 Tiotropium [place] [Spiriva Respimat] 2 puff PO DAILY 08/19/21 Zolpidem Tartrate 10 mg PO BEDTIME PRN 08/19/21 hydroCHLOROthiazide [Hydrochlorothiazide] 25 mg PO DAILY 08/19/21 predniSONE [Deltasone*] 10 mg PO DAILY 08/19/21 levoFLOXacin [Levaquin] 750 mg PO DAILY #7 tab 08/21/21 predniSONE [Prednisone*] 20 mg PO BID #10 tab 08/21/21 New Medications: levoFLOXacin [Levaquin] 750 mg PO DAILY #7 tab predniSONE [Prednisone*] 20 mg PO BID #10 tab Followup: NONE,NONE [Primary Care Provider] - 1-2 Weeks
[2021-08-21 12:26] VITALS: O2SAT 92
--- NOTE | 2021-08-21 12:29 | P.CNS ---
Date of Consult: 08/21/21 PC: I was asked to see this 66-year-old male in regards to swelling and cellulitis on the stump of his right BKA. HPC: Patient had recently driven down from [facility] of [facility] to this area. He noticed that his leg was swollen, causing irritation on the end of the stump of his right BKA. PSHx: Previous right B KA PMHx: Diabetes cardiovascular disease Social Hx: Smokes a pack a day Sys R: States he is otherwise healthy O/E: Awake alert vital signs are stable HEENT: Within normal limits Chest: Air entry equal bilaterally Abd: NAD [place]: On the bottom surface of his distal right BKA stump, there is almost a horseshoe-like maddy with full-thickness skin off as well as some chronic granulation tissue. There was some surrounding cellulitis. Data: No evidence of further ostia Impression: Patient has a pressure ulcer on the bottom of his right BKA stump. Had recently [place] with his leg in a dependent position. Plan: Elevation of his stump, has been on some antibiotics. Does not require any surgical intervention at this time. We discussed ongoing wound care. He is going to be in this area for the next few weeks. He may follow-up at our wound care center.
--- NOTE | 2021-08-22 08:16 | EKG ---
Test Date: 2021-08-19 Test Time: 18:23:59 Survey Associate: BLAYNE MEASUREMENT RESULTS: Intervals: Rate: 88 SD: 168 QRSD: 94 QT: 378 QTc: 457 [place]: P: 74 SD: 168 QRS: 47 T: 71 INTERPRETIVE STATEMENTS: Normal sinus rhythm Normal ECG No previous ECG available for comparison Electronically Signed On 08-22-21 08:12:39 CHECK SCALER by Fredy Otto
== END 2021-08-21 12:34 | disposition home or self-care (01) | DRG 565 ==
LOC: ER 16:04 → ERHOLD 19:44 → 2ND 21:57
PROVIDERS: ADMIT Internal Medicine; ATTEND Internal Medicine
DX: T87.43 Infection of amputation stump, right lower extremity (principal); J44.1 Chronic obstructive pulmonary disease with (acute) exacerbation; L03.115 Cellulitis of right lower limb; I10 Essential (primary) hypertension; L89.899 Pressure ulcer of other site, unspecified stage; F17.210 Nicotine dependence, cigarettes, uncomplicated; Z89.511 Acquired absence of right leg below knee; Z99.81 Dependence on supplemental oxygen; Z20.822 Contact with and (suspected) exposure to COVID-19
CPT/HCPCS: 36415; 71045; 76882; 80048; 80053; 80076; 83605; 83735; 84100; 84145; 85025; 85610; 85730; 87040; 87070; 87205; 93005; 94640; 94760; 96365; 96375; 99284; 99285; J1170; J1650; J2543; J3370; J7040; J7050; J7512; J7606; U0003